=== PATIENT | female | born 1990 | race Caucasian/White ===

== ENCOUNTER 2019-01-16 11:31 | Emergency (ER) | payer OTHER ==
[~2019-01-16] VITALS: Ht 165.1 cm; Wt 70.0 kg
[2019-01-16 11:41] VITALS: BP 122/72
[2019-01-16] MEDS ORDERED: LIDOCAINE-MPF 1%, 2ML ONE (11:52)
[2019-01-16] MEDS ORDERED: CLINDAMYCIN 150 MG/ML, 6ML ONE (11:52)
[2019-01-16] MEDS ORDERED: DIPH,PERTUSS(ACELL),TET VAC/PF 0.5 ML IM-VACC ONE ×2 (11:52→12:00)
[2019-01-16] MEDS ORDERED: PLEASE ENTER ALLERGIES MC SCH (12:00)
[2019-01-16] MEDS ORDERED: CLINDAMYCIN 150 MG/ML, 6ML IM ONE (12:00)
[2019-01-16] MEDS ORDERED: PLEASE ENTER HEIGHT AND WEIGHT MC SCH (12:00)
[2019-01-16] MEDS ORDERED: LIDOCAINE 1%, 10ML INFIL ONE (12:00)
--- NOTE | 2019-01-16 12:11 | NUR ---
BIBA. PT C/O RIGHT 1ST DIGIT SWELLING/PAIN WITH N/V. PT'S AOX4. RESPS EVEN AND UNLABORED. BP/SPO2 MONITORS IN PLACE. CALL LIGHT WITHIN REACH.
--- NOTE | 2019-01-16 12:11 | NUR ---
PT MEDICATED PER EMAR. PT TOLERATED WELL.
--- NOTE | 2019-01-16 13:29 | NUR ---
XEROFORM DRESSING APPLIED. PT GIVEN DC INSTRUICTIONS AND SCRIPTS. PT EDUCATED REGARDING DC MEDICATIONS. PT'S AOX4. RESPS EVEN AND UNLABORED. PT AMB TO DC WITH STEADY GAIT. NO ACUTE DISTRESS AT DC.
== END 2019-01-16 13:30 | disposition home or self-care (01) ==
LOC: ED 13:24
DX: L03.011 Cellulitis of right finger (principal); L02.511 Cutaneous abscess of right hand; F17.200 Nicotine dependence, unspecified, uncomplicated
CPT/HCPCS: 26010; 73130; 90471; 90715; 96372; 99283; S0077; 10060